=== PATIENT | male | born 1960 | race Caucasian/White ===

== ENCOUNTER → 2016-10-23 | Outpatient (CLI) | payer BC ==
[2016-10-23 08:56] LABS: ALT 62 U/L (21-72); AST 34 U/L (17-59); Alkaline Phosphatase 70 U/L (38-126); Anion Gap 12 mmol/L; Blood Urea Nitrogen 29 mg/dL (9-20); Carbon Dioxide 26 mmol/L (22-30); Chloride 103 mmol/L (98-107); Cholesterol 144 mg/dL (<200); Glucose 118 mg/dL (74-99); HDL Cholesterol 51 mg/dL (40-60); Non-African American GFR(MDRD) >60 (>60 ml/min/1.73 sqM); Potassium 4.6 mmol/L (3.5-5.1); Sodium 141 mmol/L (137-145); Total Bilirubin 0.6 mg/dL (0.2-1.3); Total Protein 7.8 g/dL (6.3-8.2); Triglycerides 47 mg/dL (<150)
== END | disposition home or self-care (01) ==
LOC: LABWHC1 08:05
PROVIDERS: ATTEND Internal Medicine Endocrinology, Diabetes & Metabolism
DX: E11.65 Type 2 diabetes mellitus with hyperglycemia (principal)
CPT/HCPCS: 36415; 80053; 80061; 82043

== ENCOUNTER → 2017-11-17 | Outpatient (CLI) | payer BC ==
[2017-11-17 08:35] LABS: ALT 72 U/L (21-72); AST 40 U/L (17-59); Albumin 4.7 g/dL (3.5-5.0); Alkaline Phosphatase 66 U/L (38-126); Anion Gap 16 mmol/L; Blood Urea Nitrogen 33 mg/dL (9-20); Calcium 10.4 mg/dL (8.4-10.2); Carbon Dioxide 24 mmol/L (22-30); Chloride 101 mmol/L (98-107); Cholesterol 161 mg/dL (<200); Glucose 152 mg/dL (74-99); HDL Cholesterol 44 mg/dL (40-60); LDL Cholesterol,Calculated 107 mg/dL (0-99); Potassium 4.4 mmol/L (3.5-5.1); Sodium 141 mmol/L (137-145); Total Bilirubin 0.3 mg/dL (0.2-1.3); Total Protein 7.7 g/dL (6.3-8.2); Triglycerides 52 mg/dL (<150)
[2017-11-17 16:46] LABS: Vitamin D 25 Hydroxy 28.7 ng/mL (30.0-100.0)
== END | disposition home or self-care (01) ==
LOC: LABWHC1 07:38
PROVIDERS: ATTEND Internal Medicine Endocrinology, Diabetes & Metabolism
DX: E11.65 Type 2 diabetes mellitus with hyperglycemia (principal); E55.9 Vitamin D deficiency, unspecified; E53.8 Deficiency of other specified B group vitamins
CPT/HCPCS: 36415; 80053; 80061; 82043; 82306; 82570; 82607; 83036

== ENCOUNTER 2018-01-29 13:27 | Emergency (ER) | payer BC ==
[2018-01-29 13:36] VITALS: TEMP 97.6
[2018-01-29] MEDS ORDERED: SODIUM CHLORIDE 0.9% 1,000 ML IV STA (13:58)
[2018-01-29] MEDS ORDERED: LABETALOL 5 MG/ML VIAL MDV IVP STA (13:59)
--- NOTE | 2018-01-29 14:08 | ED ---
General Adult HPI - General Chief complaint: Recheck/Abnormal Lab/Rx Stated complaint: abn EKG Time Seen by Provider: 01/29/18 13:51 Source: patient, family, RN notes reviewed Mode of arrival: ambulatory Limitations: no limitations - History of Present Illness Initial comments: Patient is a pleasant 57-year-old male presenting to the emergency Department with concerns for tachycardia. Patient has been noticing on his watch the past several weeks to couple months that his heart rate has been running high. Patient states that has alarmed at some points with a heart rate of 120. Patient frequently has noticed numbers near 108. Patient did go to his doctor today. Patient was told heart rate was 108-112. Patient also had elevated blood pressure of 180/112. Patient states he feels fine otherwise and has no complaints. Patient does drink 2 cups of coffee daily. Patient sometimes has one pop daily also. No chest pain or dyspnea. Patient denies increased stress. No diet pills or drug use. - Related Data Home Medications Medication Instructions Recorded Confirmed Cholecalciferol (Vitamin D3) 2,000 unit PO DAILY 01/29/18 01/29/18 [Vitamin D3] Cyanocobalamin (Vitamin B-12) 1,000 mcg PO DAILY 01/29/18 01/29/18 [Vitamin B-12] Liraglutide [Victoza 3-Wili] 1.2 mg SQ DAILY 01/29/18 01/29/18 Lovastatin [Mevacor] 40 mg PO HS 01/29/18 01/29/18 glipiZIDE [Glucotrol] 5 mg PO AC-BRKFST 01/29/18 01/29/18 metFORMIN HCL 1,000 mg PO BID 01/29/18 01/29/18 Previous Rx's Medication Instructions Recorded Atenolol [Tenormin] 12.5 mg PO BID #20 dose 01/29/18 Allergies Allergy/AdvReac Type Severity Reaction Status Date / Time No Known Allergies Allergy Verified 01/29/18 13:55 Review of Systems ROS Statement: Those systems with pertinent positive or pertinent negative responses have been documented in the HPI. ROS Other: All systems not noted in ROS Statement are negative. Constitutional: Denies: fever Eyes: Denies: eye pain ENT: Denies: ear pain Respiratory: Denies: cough, dyspnea Cardiovascular: Denies: chest pain Endocrine: Denies: fatigue Gastrointestinal: Denies: abdominal pain Genitourinary: Denies: dysuria Musculoskeletal: Denies: back pain Skin: Denies: rash Neurological: Denies: headache Past Medical History Past Medical History: Diabetes Mellitus, Hyperlipidemia, Hypertension History of Any Multi-Drug Resistant Organisms: None Reported Past Surgical History: Orthopedic Surgery Additional Past Surgical History / Comment(s): bone graft left wrist, bone spur left ankle Past Psychological History: No Psychological Hx Reported Smoking Status: Never smoker Past Alcohol Use History: Occasional Past Drug Use History: None Reported General Exam Limitations: no limitations General appearance: alert, in no apparent distress Head exam: Present: atraumatic Eye exam: Present: normal appearance, PERRL ENT exam: Present: normal oropharynx Neck exam: Present: normal inspection Respiratory exam: Present: normal lung sounds bilaterally Cardiovascular Exam: Present: tachycardia, normal heart sounds Expanded Peripheral pulses: 2+: Radial (R), Radial (L), Posterior Tibialis (R), Posterior Tibialis (L) GI/Abdominal exam: Present: soft. Absent: tenderness Extremities exam: Present: normal inspection. Absent: pedal edema, calf tenderness Neurological exam: Present: alert Psychiatric exam: Present: normal affect, normal mood Skin exam: Present: normal color Course Vital Signs 01/29/18 01/29/18 13:32 14:50 Temperature 97.6 F Pulse Rate 116 H 100 Respiratory 18 16 Rate Blood Pressure 184/102 159/100 O2 Sat by Pulse 96 98 Oximetry EKG Findings - EKG Comments: EKG Findings:: Sinus tachycardia 108. [place] 176. QRS 96. QT 354. QTC 474. Normal axis. Borderline inferior Q waves. No acute ST change. Medical Decision Making - Medical Decision Making Patient reevaluated and resting comfortably in bed. Patient remained symptom- free. Patient vital signs have dramatically improved with 20 of labetalol. Heart rate is 97. Blood pressure was 127/85. Repeat blood pressure is 143/89. Case was discussed in detail with patient's primary care physician, Dr. Silva who is comfortable with providing low dose beta jenelle and discharge. He states he will follow-up next week with patient. - Lab Data Result diagrams: 01/29/18 14:10 01/29/18 14:10 Lab Results 01/29/18 01/29/18 01/29/18 Range/Units 14:10 14:10 14:10 WBC 10.5 (3.8-10.6) k/uL RBC 4.98 (4.30-5.90) m/uL Hgb 14.7 (13.0-17.5) gm/dL Hct 43.0 (39.0-53.0) % MCV 86.2 (80.0-100.0) fL MCH 29.4 (25.0-35.0) pg MCHC 34.1 (31.0-37.0) g/dL RDW 12.9 (11.5-15.5) % Plt Count 313 (150-450) k/uL Neutrophils % 64 % Lymphocytes % 24 % Monocytes % 5 % Eosinophils % 4 % Basophils % 0 % Neutrophils # 6.7 (1.3-7.7) k/uL Lymphocytes # 2.5 (1.0-4.8) k/uL Monocytes # 0.6 (0-1.0) k/uL Eosinophils # 0.4 (0-0.7) k/uL Basophils # 0.0 (0-0.2) k/uL PT (9.0-12.0) sec INR (<1.2) APTT (22.0-30.0) sec D-Dimer (<0.60) mg/L FEU Sodium 136 L (137-145) mmol/L Potassium 3.9 (3.5-5.1) mmol/L Chloride 98 (98-107) mmol/L Carbon Dioxide 24 (22-30) mmol/L Anion Gap 14 mmol/L BUN 18 (9-20) mg/dL Creatinine 0.83 (0.66-1.25) mg/dL Est GFR (CKD-EPI)AfAm >90 (>60 ml/min/1.73 sqM) Est GFR (CKD-EPI)NonAf >90 (>60 ml/min/1.73 sqM) Glucose 105 H (74-99) mg/dL Calcium 10.4 H (8.4-10.2) mg/dL Magnesium 1.7 (1.6-2.3) mg/dL Total Bilirubin 0.4 (0.2-1.3) mg/dL AST 35 (17-59) U/L ALT 79 H (21-72) U/L Alkaline Phosphatase 65 (38-126) U/L Total Creatine Kinase 79 (55-170) U/L CK-MB (CK-2) 1.1 (0.0-2.4) ng/mL CK-MB (CK-2) Rel Index 1.4 Troponin I <0.012 (0.000-0.034) ng/mL Total Protein 8.0 (6.3-8.2) g/dL Albumin 5.2 H (3.5-5.0) g/dL TSH 0.913 (0.465-4.680) mIU/L Free T4 1.20 (0.78-2.19) ng/dL Urine Color Urine Appearance (Clear) Urine pH (5.0-8.0) Ur Specific [place] (1.001-1.035) Urine Protein (Negative) Urine Glucose (UA) (Negative) Urine Ketones (Negative) Urine Blood (Negative) Urine Nitrite (Negative) Urine Bilirubin (Negative) Urine Urobilinogen (<2.0) mg/dL Ur Leukocyte Esterase (Negative) Urine RBC (0-5) /hpf Urine WBC (0-5) /hpf Urine Mucus (None) /hpf Urine Opiates Screen (NotDetected) Ur Oxycodone Screen (NotDetected) Urine Methadone Screen (NotDetected) Ur Propoxyphene Screen (NotDetected) Ur Barbiturates Screen (NotDetected) U Tricyclic Antidepress (NotDetected) Ur Phencyclidine Scrn (NotDetected) Ur Amphetamines Screen (NotDetected) U Methamphetamines Scrn (NotDetected) U Benzodiazepines Scrn (NotDetected) Urine Cocaine Screen (NotDetected) U Marijuana (THC) Screen (NotDetected) 01/29/18 01/29/18 Range/Units 14:10 14:10 WBC (3.8-10.6) k/uL RBC (4.30-5.90) m/uL Hgb (13.0-17.5) gm/dL Hct (39.0-53.0) % MCV (80.0-100.0) fL MCH (25.0-35.0) pg MCHC (31.0-37.0) g/dL RDW (11.5-15.5) % Plt Count (150-450) k/uL Neutrophils % % Lymphocytes % % Monocytes % % Eosinophils % % Basophils % % Neutrophils # (1.3-7.7) k/uL Lymphocytes # (1.0-4.8) k/uL Monocytes # (0-1.0) k/uL Eosinophils # (0-0.7) k/uL Basophils # (0-0.2) k/uL PT 9.9 (9.0-12.0) sec INR 1.0 (<1.2) APTT 22.9 (22.0-30.0) sec D-Dimer <0.17 (<0.60) mg/L FEU Sodium (137-145) mmol/L Potassium (3.5-5.1) mmol/L Chloride (98-107) mmol/L Carbon Dioxide (22-30) mmol/L Anion Gap mmol/L BUN (9-20) mg/dL Creatinine (0.66-1.25) mg/dL Est GFR (CKD-EPI)AfAm (>60 ml/min/1.73 sqM) Est GFR (CKD-EPI)NonAf (>60 ml/min/1.73 sqM) Glucose (74-99) mg/dL Calcium (8.4-10.2) mg/dL Magnesium (1.6-2.3) mg/dL Total Bilirubin (0.2-1.3) mg/dL AST (17-59) U/L ALT (21-72) U/L Alkaline Phosphatase (38-126) U/L Total Creatine Kinase (55-170) U/L CK-MB (CK-2) (0.0-2.4) ng/mL CK-MB (CK-2) Rel Index Troponin I (0.000-0.034) ng/mL Total Protein (6.3-8.2) g/dL Albumin (3.5-5.0) g/dL TSH (0.465-4.680) mIU/L Free T4 (0.78-2.19) ng/dL Urine Color Light Yellow Urine Appearance Clear (Clear) Urine pH 5.5 (5.0-8.0) Ur Specific [place] 1.010 (1.001-1.035) Urine Protein 1+ H (Negative) Urine Glucose (UA) 3+ H (Negative) Urine Ketones Negative (Negative) Urine Blood Negative (Negative) Urine Nitrite Negative (Negative) Urine Bilirubin Negative (Negative) Urine Urobilinogen <2.0 (<2.0) mg/dL Ur Leukocyte Esterase Negative (Negative) Urine RBC <1 (0-5) /hpf Urine WBC <1 (0-5) /hpf Urine Mucus Rare H (None) /hpf Urine Opiates Screen Not Detected (NotDetected) Ur Oxycodone Screen Not Detected (NotDetected) Urine Methadone Screen Not Detected (NotDetected) Ur Propoxyphene Screen Not Detected (NotDetected) Ur Barbiturates Screen Not Detected (NotDetected) U Tricyclic Antidepress Not Detected (NotDetected) Ur Phencyclidine Scrn Not Detected (NotDetected) Ur Amphetamines Screen Not Detected (NotDetected) U Methamphetamines Scrn Not Detected (NotDetected) U Benzodiazepines Scrn Not Detected (NotDetected) Urine Cocaine Screen Not Detected (NotDetected) U Marijuana (THC) Screen Not Detected (NotDetected) Disposition Clinical Impression: Tachycardia, Hypertension Disposition: HOME SELF-CARE Condition: Stable Instructions: Hypertension (ED), Tachycardia (ED) Additional Instructions: Please follow-up with primary care physician in the beginning of the week. Please keep a diary of heart rate and blood pressure for her primary care physician to review. Return for increased heart rate, increased blood pressure , chest pain, weakness, worsening symptoms or any other concerns. Prescriptions: Atenolol [Tenormin] 12.5 mg PO BID #20 dose Is patient prescribed a controlled substance at d/c from ED?: No Referrals: Jake Silva DO [Primary Care Provider] - 1-2 days Time of Disposition: 15:52
[2018-01-29 14:44] LABS: Basophils % (A) 0 %; Eosinophils # (A) 0.4 k/uL (0-0.7); Eosinophils % (A) 4 %; HGB 14.7 gm/dL (13.0-17.5); Lymphocytes # (A) 2.5 k/uL (1.0-4.8); Lymphocytes % (A) 24 %; MCH 29.4 pg (25.0-35.0); MCHC 34.1 g/dL (31.0-37.0); MCV 86.2 fL (80.0-100.0); Mean Platelet Volume 7.8; Monocytes # (A) 0.6 k/uL (0-1.0); Monocytes % (A) 5 %; Neutrophils # (A) 6.7 k/uL (1.3-7.7); Neutrophils % (A) 64 %; Platelet Count 313 k/uL (150-450); RBC 4.98 m/uL (4.30-5.90); RDW 12.9 % (11.5-15.5); WBC 10.5 k/uL (3.8-10.6)
[2018-01-29 14:51] VITALS: PULSE 100; RESP 16
--- NOTE | 2018-01-29 14:52 | XR ---
EXAMINATION TYPE: XR chest 2V DATE OF EXAM: 01/29/2018 COMPARISON: NONE HISTORY: Tachycardia and hypertension today. TECHNIQUE: Frontal and lateral views of the chest are obtained. FINDINGS: There is some patchy bibasilar linear scarring and/or atelectasis. There is no focal air sp darlin opacity, pleural effusion, or pneumothorax seen. The cardiac silhouette size is within normal li mits. The osseous structures are intact. IMPRESSION: Limited bibasilar linear scarring and/or atelectasis.
[2018-01-29 14:58] LABS: Amphetamine Screen,Urine Not Detected (NotDetected); Appearance,Urine Clear (Clear); Barbiturate Screen,Urine Not Detected (NotDetected); Benzodiazepines Screen,Urine Not Detected (NotDetected); Bilirubin,Urine Negative (Negative); Blood,Urine Negative (Negative); Cocaine Screen,Urine Not Detected (NotDetected); Color,Urine Light Yellow; Glucose,Urine (UA) 3+ (Negative); Ketones,Urine Negative (Negative); Leukocyte Esterase,Urine Negative (Negative); Methadone Screen, Urine Not Detected (NotDetected); Mucus,Urine Rare /hpf; Nitrite,Urine Negative (Negative); Opiate Screen,Urine Not Detected (NotDetected); Oxycodone Screen, Urine Not Detected (NotDetected); PH, Urine 5.5 (5.0-8.0); Phencyclidine Screen,Urine Not Detected (NotDetected); Protein,Urine 1+ (Negative); RBC,Urine <1 /hpf (0-5); Tricyclic Antidepressant,Urine Not Detected (NotDetected); Urn Cannabinoid Scrn Not Detected (NotDetected); Urobilinogen,Urine <2.0 mg/dL (<2.0); WBC,Urine <1 /hpf (0-5)
[2018-01-29 15:05] LABS: ALT 79 U/L (21-72); AST 35 U/L (17-59); Albumin 5.2 g/dL (3.5-5.0); Alkaline Phosphatase 65 U/L (38-126); Anion Gap 14 mmol/L; Blood Urea Nitrogen 18 mg/dL (9-20); Calcium 10.4 mg/dL (8.4-10.2); Carbon Dioxide 24 mmol/L (22-30); Chloride 98 mmol/L (98-107); Creatine Kinase 79 U/L (55-170); D-Dimer <0.17 mg/L FEU (<0.60); Glucose 105 mg/dL (74-99); Magnesium 1.7 mg/dL (1.6-2.3); Partial Thromboplastin Time 22.9 sec (22.0-30.0); Potassium 3.9 mmol/L (3.5-5.1); Prothrombin Time 9.9 sec (9.0-12.0); Sodium 136 mmol/L (137-145); Total Bilirubin 0.4 mg/dL (0.2-1.3)
[2018-01-29 15:17] LABS: Creatine Kinase MB 1.1 ng/mL (0.0-2.4); Troponin I <0.012 ng/mL (0.000-0.034)
[2018-01-29 16:21] VITALS: BP 123/78
== END 2018-01-29 16:20 | disposition home or self-care (01) ==
LOC: EC 13:27
DX: I10 Essential (primary) hypertension (principal); R00.0 Tachycardia, unspecified; E78.5 Hyperlipidemia, unspecified; E11.9 Type 2 diabetes mellitus without complications; Z79.84 Long term (current) use of oral hypoglycemic drugs; Z79.899 Other long term (current) drug therapy
CPT/HCPCS: 36415; 71046; 80053; 80306; 81001; 82550; 82553; 83735; 84439; 84443; 84481; 84484; 85025; 85379; 85610; 85730; 93005; 96361; 96374; 99285

== ENCOUNTER → 2018-02-05 | Outpatient (CLI) | payer BC ==
--- NOTE | 2018-02-16 21:09 | HM ---
HOLTER MONITOR REPORT DATE OF SERVICE: February 05, 2018 REFERRING PHYSICIAN: Dr. Silva. CLINICAL INFORMATION: The patient was monitored for 24 hours. The baseline rhythm appeared to be a sinus mechanism with a minimum heart rate of 73 beats per minute, max heart rate 123 beats per minute and average heart rate of 95 beats per minute. Ventricular ectopic events were presented in less than 1% of the total beats counts. Supraventricular ectopic events were present in less than 1% of the total beats count. No evidence of sinus pause or sinus arrest. No evidence of any advanced AV block. No evidence of any tachy or bradyarrhythmia. CONCLUSION: 1. Sinus rhythm as a baseline mechanism. 2. Rare ventricular ectopy events. 3. Rare superficial ectopic events. 4. There is no evidence of any advanced sinus pause or sinus arrest. 5. There is no evidence of any advanced AV block. 6. There is no evidence of any tachy or bradyarrhythmia. 7. The patient reported symptoms of chest pressure and symptoms were associated with normal sinus mechanism. MMODL / IJN: [id number] /
== END | disposition home or self-care (01) ==
LOC: RADECHMAIN 11:54
PROVIDERS: ATTEND Family Medicine
DX: I49.3 Ventricular premature depolarization (principal)
CPT/HCPCS: 93225; 93226

== ENCOUNTER → 2018-03-08 | Outpatient (CLI) | payer BC ==
[2018-03-08 08:44] LABS: ALT 101 U/L (21-72); AST 33 U/L (17-59); Albumin 4.8 g/dL (3.5-5.0); Alkaline Phosphatase 62 U/L (38-126); Anion Gap 13 mmol/L; Blood Urea Nitrogen 27 mg/dL (9-20); Calcium 10.4 mg/dL (8.4-10.2); Carbon Dioxide 26 mmol/L (22-30); Chloride 100 mmol/L (98-107); Cholesterol 152 mg/dL (<200); Glucose 167 mg/dL (74-99); HDL Cholesterol 42 mg/dL (40-60); LDL Cholesterol,Calculated 97 mg/dL (0-99); Potassium 4.4 mmol/L (3.5-5.1); Sodium 139 mmol/L (137-145); Total Bilirubin 0.4 mg/dL (0.2-1.3); Total Protein 7.8 g/dL (6.3-8.2); Triglycerides 64 mg/dL (<150)
[2018-03-08 09:00] LABS: T4, Free (Free Thyroxine) 1.17 ng/dL (0.78-2.19)
[2018-03-08 09:13] LABS: Prostate Specific Antigen 1.12 ng/mL (0.00-4.00)
[2018-03-08 12:45] LABS: Hemoglobin A1C 7.1 % (4.0-6.0)
== END | disposition home or self-care (01) ==
LOC: LABWHC1 07:29
PROVIDERS: ATTEND Internal Medicine Endocrinology, Diabetes & Metabolism
DX: N40.0 Benign prostatic hyperplasia without lower urinary tract symptoms (principal); E11.65 Type 2 diabetes mellitus with hyperglycemia; E83.52 Hypercalcemia
CPT/HCPCS: 36415; 80053; 80061; 82607; 83036; 83970; 84153; 84439; 84443

== ENCOUNTER → 2018-08-21 | Outpatient (CLI) | payer BC ==
[2018-08-21 09:52] LABS: HCT 43.4 % (39.0-53.0); HGB 14.1 gm/dL (13.0-17.5); MCH 29.5 pg (25.0-35.0); MCHC 32.5 g/dL (31.0-37.0); MCV 90.5 fL (80.0-100.0); Mean Platelet Volume 7.7; Platelet Count 313 k/uL (150-450); RBC 4.79 m/uL (4.30-5.90); RDW 12.6 % (11.5-15.5)
[2018-08-21 16:45] LABS: Vitamin D 25 Hydroxy 54.5 ng/mL (30.0-100.0)
[2018-08-21 16:52] LABS: Albumin 5.2 g/dL (3.80-4.90); Albumin/Globulin Ratio 2.17 (1.60-3.17); Anion Gap 9.5 mmol/L (4.00-12.00); Bilirubin, Conjugated 0.2 mg/dL (0.20-0.40); Bilirubin,Unconjugated 0.2 mg/dL; Calcium 10.7 mg/dL (8.7-10.3); Carbon Dioxide 27.5 mmol/L (21.6-31.8); Globulin 2.4 g/dL (1.6-3.3); LDL Cholesterol,Calculated 60.6 mg/dL (0.0-131.0); Potassium 5.2 mmol/L (3.5-5.5); Total Bilirubin 0.4 mg/dL (0.3-1.2); Total Protein 7.6 g/dL (6.2-8.2); VLDL Calculation 11.4 mg/dL (5.00-40.00)
[2018-08-21 17:15] LABS: Hemoglobin A1C 7.5 % (4.0-6.0)
== END | disposition home or self-care (01) ==
LOC: LABWHC1 08:33
PROVIDERS: ATTEND Internal Medicine Endocrinology, Diabetes & Metabolism
DX: E11.65 Type 2 diabetes mellitus with hyperglycemia (principal); E55.9 Vitamin D deficiency, unspecified; I10 Essential (primary) hypertension; E78.5 Hyperlipidemia, unspecified; R94.5 Abnormal results of liver function studies
CPT/HCPCS: 36415; 80053; 80061; 80074; 80076; 82043; 82306; 82570; 82977; 83036; 84443; 85027

== ENCOUNTER → 2018-10-05 | Outpatient (CLI) | payer BC ==
[2018-10-05 16:18] LABS: ALT 60 U/L (10-49); AST 27 U/L (14-35); Alkaline Phosphatase 58 U/L (41-126); Bilirubin, Conjugated <0.20 mg/dL (0.20-0.40); GGT 116 U/L (0-73); Total Bilirubin 0.3 mg/dL (0.3-1.2); Total Protein 6.6 g/dL (6.2-8.2)
== END | disposition home or self-care (01) ==
LOC: LABWHC1 07:01
PROVIDERS: ATTEND Family Medicine
DX: E83.52 Hypercalcemia (principal); R74.8 Abnormal levels of other serum enzymes
CPT/HCPCS: 36415; 80076; 82310; 82977; 83970

== ENCOUNTER → 2018-10-27 | Outpatient (CLI) | payer BC ==
--- NOTE | 2018-10-27 16:43 | US ---
EXAMINATION TYPE: US liver DATE OF EXAM: 10/27/2018 COMPARISON: CT CLINICAL HISTORY: K76.0 Fatty liver , not elsewhere classified. Pt states recent abnormal LFT's EXAM MEASUREMENTS: Liver Length: 14.9 cm Gallbladder Wall: 0.2 cm CBD: 0.5 cm Right Kidney: 10.4 x 5.6 x 5.0 cm Pt very gassy, difficult scan Pancreas: Obscured by bowel gas Liver: Mostly obscured by overlying bowel gas, visualized mostly intercostally, probable fatty spari ng near GB Gallbladder: Appeared distended with possible sludge Evidence for sonographic Ruiz's sign: No CBD: wnl Right Kidney: wnl, lower pole gassed out IMPRESSION: 1. Exam limited with abundant bowel gas. 2. Portions of the right upper quadrant ultrasound visualized appear within normal limits.
== END ==
LOC: RADUSWWP 09:25
PROVIDERS: ATTEND Family Medicine
DX: K76.0 Fatty (change of) liver, not elsewhere classified (principal)
CPT/HCPCS: 76705

== ENCOUNTER → 2023-03-26 | Outpatient (CLI) | payer BC ==
--- NOTE | 2023-03-26 10:06 | MR ---
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 IV Contrast: cc . None. FINDINGS: Alignment: The lumbar vertebral bodies have preserved heights with grade 1 anterolisthesis of L5 on S 1. There is spondylolysis bilaterally. Cord: The conus medullaris and the distal spinal cord appear unremarkable with regards to their signa l intensity and morphology. Bones/Discs: Minimal disc degeneration changes worse at L5-S1 with disc space narrowing and osteophyt es. Intervertebral disc signal is maintained. T12-L1: No evidence of significant spinal canal stenosis or neural foraminal stenosis. L1-L2: No evidence of significant spinal canal stenosis or neural foraminal stenosis. L2-L3: No evidence of significant spinal canal stenosis or neural foraminal stenosis. L3-L4: No evidence of significant spinal canal stenosis or neural foraminal stenosis. L4-L5: There is a left central and foraminal disc extrusion with inferior migration of disc material series 411 image 7. There is at least 11 mm inferior migration which abuts the exiting left nerve at this level. Facet joint arthropathy at least moderate to severe right neural foraminal stenosis. Ther e is a disc bulge at this level as well with possible central disc protrusion without significant spi nal canal or neural foraminal stenosis. L5-S1: The disc is rounded posterior morphology without significant spinal canal stenosis. Facet join t arthropathy with mild neural foraminal stenosis. No significant spinal canal or neural foraminal stenosis in the remainder of the visualized levels. Other findings: None. IMPRESSION: 1. L4-L5 left central/foraminal disc extrusion which abuts the exiting left L5-S1 nerve. Additional bulging and central disc protrusion at this level is present. No significant spinal canal stenosis. 2. Grade 1 anterolisthesis of L5 on S1 with spondylolysis bilaterally.
== END | disposition home or self-care (01) ==
LOC: RADMRIMAIN 07:54
PROVIDERS: ATTEND Physical Medicine & Rehabilitation
DX: M51.17 Intervertebral disc disorders with radiculopathy, lumbosacral region (principal); M47.27 Other spondylosis with radiculopathy, lumbosacral region; M48.062 Spinal stenosis, lumbar region with neurogenic claudication; M43.17 Spondylolisthesis, lumbosacral region; M99.73 Connective tissue and disc stenosis of intervertebral foramina of lumbar region
CPT/HCPCS: 72148

== ENCOUNTER 2023-09-14 10:57 | Inpatient (IN) | payer OTHER, BC ==
--- NOTE | 2023-09-14 11:13 | ED ---
General Adult HPI - General Stated complaint: Abd Labs Time Seen by Provider: 09/14/23 11:01 Source: patient, RN notes reviewed Mode of arrival: ambulatory Limitations: no limitations - History of Present Illness Initial comments: 63-year-old male presents emergency department with chief complaint of abdominal pain. Patient was sent over from urgent care to rule out obstruction. Patient states he had x-rays that show concerns for obstruction he states he had vomiting for last few days he states he initially had bowel movements he states he has not had any stool output. Patient denies any fevers or chills no prior abdominal surgeries. - Related Data Home Medications Medication Instructions Recorded Confirmed Cyanocobalamin (Vitamin B-12) 1,000 mcg PO DAILY 01/29/18 09/14/23 [Vitamin B-12] Aspirin EC [Ecotrin Low Dose] 81 mg PO DAILY 09/14/23 09/14/23 Glucagon [Gvoke Pfs 1-Pack Syringe] 1 mg SQ ONCE PRN 09/14/23 09/14/23 Insulin Aspart [NovoLOG Flexpen] See Protocol SQ AC-TID 09/14/23 09/14/23 Insulin Glargine,Hum.rec.anlog 34 units SQ DAILY 09/14/23 09/14/23 [Toujeo Max Solostar] Losartan [Cozaar] 50 mg PO HS 09/14/23 09/14/23 Metoprolol Succinate (ER) [Toprol 50 mg PO DAILY 09/14/23 09/14/23 Xl] Rosuvastatin [Crestor] 20 mg PO HS 09/14/23 09/14/23 Semaglutide [Rybelsus] 3 mg PO AC-BRKFST 09/14/23 09/14/23 Testosterone Cypionate 200 mg IM Q14D 09/14/23 09/14/23 [Depo-Testosterone] Allergies Allergy/AdvReac Type Severity Reaction Status Date / Time No Known Allergies Allergy Verified 09/14/23 11:09 Review of Systems ROS Statement: Those systems with pertinent positive or pertinent negative responses have been documented in the HPI. ROS Other: All systems not noted in ROS Statement are negative. Past Medical History Past Medical History: Diabetes Mellitus, Hyperlipidemia, Hypertension History of Any Multi-Drug Resistant Organisms: None Reported Past Surgical History: Orthopedic Surgery Additional Past Surgical History / Comment(s): bone graft left wrist, bone spur left ankle Past Psychological History: No Psychological Hx Reported Smoking Status: Never smoker Past Alcohol Use History: Occasional Past Drug Use History: None Reported General Exam - General Exam Comments Initial Comments: Visual Physical Exam Vital signs reviewed General: Well-appearing, nontoxic, no acute distress. Head: Normocephalic, atraumatic Eyes: PERRLA, EOMI ENT: Airway patent Chest: Nonlabored breathing Skin: No visual rash, normal skin tone Neuro: Alert and oriented 3 Musculoskeletal: No gross abnormalities Limitations: no limitations General appearance: alert, in no apparent distress Head exam: Present: atraumatic, normocephalic, normal inspection Eye exam: Present: normal appearance, PERRL, EOMI. Absent: scleral icterus, conjunctival injection, periorbital swelling ENT exam: Present: normal exam, normal oropharynx, mucous membranes moist Neck exam: Present: normal inspection, full ROM. Absent: tenderness, meningismus, lymphadenopathy Respiratory exam: Present: normal lung sounds bilaterally. Absent: respiratory distress, wheezes, rales, rhonchi, stridor Cardiovascular Exam: Present: normal rhythm, tachycardia, normal heart sounds. Absent: systolic murmur, diastolic murmur, rubs, gallop, clicks GI/Abdominal exam: Present: soft, tenderness, normal bowel sounds. Absent: distended, guarding, rebound, rigid Neurological exam: Present: alert, oriented X3 Skin exam: Present: warm, dry, intact, normal color. Absent: rash Course Vital Signs 09/14/23 09/14/23 09/14/23 11:07 16:19 17:16 Temperature 98.2 F Pulse Rate 125 H 112 H 114 H Respiratory 24 18 16 Rate Blood Pressure 126/80 199/116 180/108 Blood Pressure [Left Arm] Blood Pressure [Right Arm] O2 Sat by Pulse 98 97 96 Oximetry 09/14/23 09/14/23 09/14/23 17:29 18:05 19:00 Temperature Pulse Rate 116 H 117 H Respiratory 16 18 Rate Blood Pressure 178/112 162/108 Blood Pressure 173/103 [Left Arm] Blood Pressure 182/114 [Right Arm] O2 Sat by Pulse 97 99 Oximetry 09/14/23 19:33 Temperature Pulse Rate 109 H Respiratory 19 Rate Blood Pressure 162/108 Blood Pressure [Left Arm] Blood Pressure [Right Arm] O2 Sat by Pulse 95 Oximetry EKG Findings - EKG Comments: EKG Findings:: EKG performed at 14: 36 sinus tachycardia with a rate of 125 MA 157 QRS 89 QT/QTc 319/393 - EKG Results: EKG: interpreted by [facility]SE[facility] Medical Decision Making - Medical Decision Making I completed the quick note portion of this chart signed Josef Martins PA-C Was pt. sent in by a medical professional or institution (, [facility], SHOWCASE TRIMMER, urgent care, hospital, or snf...) When possible be specific @ -Urgent care Did you speak to anyone other than the patient for history (EMS, parent, family, police, friend...)? What history was obtained from this source @ -No Did you review nursing and triage notes (agree or disagree)? Why? @ -I reviewed and agree with nursing and triage notes Were old charts reviewed (outside hosp., previous admission, EMS record, old EKG, old radiological studies, urgent care reports/EKG's, snf records)? Report findings @ -No old charts were reviewed Differential Diagnosis (chest pain, altered mental status, abdominal pain women, abdominal pain men, vaginal bleeding, weakness, fever, dyspnea, syncope, h eadache, dizziness, GI bleed, back pain, seizure, CVA, palpatations, mental health, musculoskeletal)? @ -Differential Abdominal Pain Men: Appendicitis, cholecystitis, diverticulosis, ischemic bowel, pancreatitis, hepatitis, UTI, gastroenteritis, AAA, incarcerated hernia, bowel obstruction, constipation, inflammatory bowel, hepatitis, peptic ulcer disease, splenic infarction, perforated viscus, testicular torsion, this is not meant to be an all-inclusive list EKG interpreted by me (3pts min.). @ -As above X-rays interpreted by me (1pt min.). @ -None done CT interpreted by me (1pt min.). @ -CT abdomen pelvis showing no evidence of obstruction, no obvious signs of infection] U/S interpreted by me (1pt. min.). @ -None done What testing was considered but not performed or refused? (CT, X-rays, U/S, labs)? Why? @ -None What meds were considered but not given or refused? Why? @ -None Did you discuss the management of the patient with other professionals (professionals i.e. , KASANDRA, SHOWCASE TRIMMER, lab, RT, psych nurse, social director, engineering document control clerk, teacher, highway patrol officer, mattress spring encaser)? Give summary @ -Dr. Garcia for admission with consult to nephrology Was smoking cessation discussed for >3mins.? @ -No Was critical care preformed (if so, how long)? @ -No Were there social determinants of health that impacted care today? How? (Homelessness, low income, unemployed, alcoholism, drug addiction, transpo rtation, low edu. Level, literacy, decrease access to med. care, [place] [facility], rehab)? @ -No Was there de-escalation of care discussed even if they declined (Discuss DNR or withdrawal of care, Hospice)? DNR status @ -No What co-morbidities impacted this encounter? (DM, HTN, Smoking, COPD, CAD, Cancer, CVA, ARF, Chemo, Hep., AIDS, mental health diagnosis, sleep apnea, morbid obesity)? @ -[Diabetes Was patient admitted / discharged? Hospital course, mention meds given and route, prescriptions, significant lab abnormalities, going to OR and other pertinent info. @ -Admitted patient found to have acute renal failure patient's creatinine is over 3. Patient does have moderate leukocytosis though no obvious signs of infection patient is acutely dehydrated is given fluid bolus with maintenance fluids will have consult to nephrology repeat laboratory studies. Undiagnosed new problem with uncertain prognosis? @ -No Drug Therapy requiring intensive monitoring for toxicity (Heparin, Nitro, Insulin, Cardizem)? @ -No Were any procedures done? @ -No Diagnosis/symptom? @ -Acute renal failure, dehydration, nausea vomiting, abdominal pain Acute, or Chronic, or Acute on Chronic? @ -Acute Uncomplicated (without systemic symptoms) or Complicated (systemic symptoms)? @ -Complicated Side effects of treatment? @ -No Exacerbation, Progression, or Severe Exacerbation? @ -No Poses a threat to life or bodily function? How? (Chest pain, [place], [place], pneumonia, PE, COPD, DKA, ARF, appy, cholecystitis, CVA, Diverticulitis, Homicidal, Suicidal, threat to staff... and all critical care pts) @ -Yes renal failure - Lab Data Result diagrams: 09/14/23 12:46 09/14/23 12:46 Lab Results 09/14/23 09/14/23 09/14/23 Range/Units 12:46 12:46 12:46 WBC 23.2 H (3.8-10.6) k/uL RBC 5.61 (4.30-5.90) m/uL Hgb 17.9 H (13.0-17.5) gm/dL Hct 52.3 (39.0-53.0) % MCV 93.3 (80.0-100.0) fL MCH 32.0 (25.0-35.0) pg MCHC 34.3 (31.0-37.0) g/dL RDW 12.6 (11.5-15.5) % Plt Count 349 (150-450) k/uL MPV 8.6 Neutrophils % 87 % Lymphocytes % 5 % Monocytes % 6 % Eosinophils % 0 % Basophils % 0 % Neutrophils # 20.2 H (1.3-7.7) k/uL Lymphocytes # 1.2 (1.0-4.8) k/uL Monocytes # 1.3 H (0-1.0) k/uL Eosinophils # 0.1 (0-0.7) k/uL Basophils # 0.0 (0-0.2) k/uL Sodium 141 (137-145) mmol/L Potassium 4.5 (3.5-5.1) mmol/L Chloride 99 (98-107) mmol/L Carbon Dioxide 22 (22-30) mmol/L Anion Gap 20 mmol/L BUN 63 H (9-20) mg/dL Creatinine 3.14 H (0.66-1.25) mg/dL Est GFR (CKD-EPI)AfAm 24 (>60 ml/min/1.73 sqM) Est GFR (CKD-EPI)NonAf 20 (>60 ml/min/1.73 sqM) Glucose 177 H (74-99) mg/dL Plasma Lactic Acid Elver 1.6 (0.7-2.0) mmol/L Calcium 11.4 H (8.4-10.2) mg/dL Total Bilirubin 1.2 (0.2-1.3) mg/dL AST 38 (17-59) U/L ALT 48 (4-49) U/L Alkaline Phosphatase 102 (38-126) U/L Total Protein 8.7 H (6.3-8.2) g/dL Albumin 5.3 H (3.5-5.0) g/dL Lipase 153 (23-300) U/L Urine Color Urine Appearance (Clear) Urine pH (5.0-8.0) Ur Specific [place] (1.001-1.035) Urine Protein (Negative) Urine Glucose (UA) (Negative) Urine Ketones (Negative) Urine Blood (Negative) Urine Nitrite (Negative) Urine Bilirubin (Negative) Urine Urobilinogen (<2.0) mg/dL Ur Leukocyte Esterase (Negative) Urine RBC (0-5) /hpf Urine WBC (0-5) /hpf Urine Mucus (None) /hpf 09/14/23 Range/Units 13:06 WBC (3.8-10.6) k/uL RBC (4.30-5.90) m/uL Hgb (13.0-17.5) gm/dL Hct (39.0-53.0) % MCV (80.0-100.0) fL MCH (25.0-35.0) pg MCHC (31.0-37.0) g/dL RDW (11.5-15.5) % Plt Count (150-450) k/uL MPV Neutrophils % % Lymphocytes % % Monocytes % % Eosinophils % % Basophils % % Neutrophils # (1.3-7.7) k/uL Lymphocytes # (1.0-4.8) k/uL Monocytes # (0-1.0) k/uL Eosinophils # (0-0.7) k/uL Basophils # (0-0.2) k/uL Sodium (137-145) mmol/L Potassium (3.5-5.1) mmol/L Chloride (98-107) mmol/L Carbon Dioxide (22-30) mmol/L Anion Gap mmol/L BUN (9-20) mg/dL Creatinine (0.66-1.25) mg/dL Est GFR (CKD-EPI)AfAm (>60 ml/min/1.73 sqM) Est GFR (CKD-EPI)NonAf (>60 ml/min/1.73 sqM) Glucose (74-99) mg/dL Plasma Lactic Acid Elver (0.7-2.0) mmol/L Calcium (8.4-10.2) mg/dL Total Bilirubin (0.2-1.3) mg/dL AST (17-59) U/L ALT (4-49) U/L Alkaline Phosphatase (38-126) U/L Total Protein (6.3-8.2) g/dL Albumin (3.5-5.0) g/dL Lipase (23-300) U/L Urine Color Colorless Urine Appearance Clear (Clear) Urine pH 5.5 (5.0-8.0) Ur Specific [place] 1.012 (1.001-1.035) Urine Protein 1+ H (Negative) Urine Glucose (UA) 2+ H (Negative) Urine Ketones 1+ H (Negative) Urine Blood Moderate H (Negative) Urine Nitrite Negative (Negative) Urine Bilirubin Negative (Negative) Urine Urobilinogen <2.0 (<2.0) mg/dL Ur Leukocyte Esterase Negative (Negative) Urine RBC 1 (0-5) /hpf Urine WBC 3 (0-5) /hpf Urine Mucus Rare H (None) /hpf Disposition Clinical Impression: Nausea & vomiting, Abdominal pain, Acute renal failure Disposition: ADMITTED IP TO THIS [facility] Condition: Fair Time of Disposition: 14:09
[2023-09-14 12:56] LABS: Basophils % (A) 0 %; Eosinophils # (A) 0.1 k/uL (0-0.7); Eosinophils % (A) 0 %; HCT 52.3 % (39.0-53.0); HGB 17.9 gm/dL (13.0-17.5); Lymphocytes # (A) 1.2 k/uL (1.0-4.8); Lymphocytes % (A) 5 %; MCHC 34.3 g/dL (31.0-37.0); MCV 93.3 fL (80.0-100.0); Mean Platelet Volume 8.6; Monocytes # (A) 1.3 k/uL (0-1.0); Monocytes % (A) 6 %; Neutrophils # (A) 20.2 k/uL (1.3-7.7); Neutrophils % (A) 87 %; Platelet Count 349 k/uL (150-450); RBC 5.61 m/uL (4.30-5.90); RDW 12.6 % (11.5-15.5); WBC 23.2 k/uL (3.8-10.6)
[2023-09-14 13:11] LABS: ALT 48 U/L (4-49); AST 38 U/L (17-59); African American GFR (CKD) 24 (>60 ml/min/1.73 sqM); Albumin 5.3 g/dL (3.5-5.0); Alkaline Phosphatase 102 U/L (38-126); Anion Gap 20 mmol/L; Blood Urea Nitrogen 63 mg/dL (9-20); Calcium 11.4 mg/dL (8.4-10.2); Carbon Dioxide 22 mmol/L (22-30); Chloride 99 mmol/L (98-107); Glucose 177 mg/dL (74-99); Lipase 153 U/L (23-300); Non-African American GFR(CKD) 20 (>60 ml/min/1.73 sqM); Potassium 4.5 mmol/L (3.5-5.1); Sodium 141 mmol/L (137-145); Total Bilirubin 1.2 mg/dL (0.2-1.3); Total Protein 8.7 g/dL (6.3-8.2)
[2023-09-14 13:38] LABS: Appearance,Urine Clear (Clear); Bilirubin,Urine Negative (Negative); Blood,Urine Moderate (Negative); Color,Urine Colorless; Glucose,Urine (UA) 2+ (Negative); Ketones,Urine 1+ (Negative); Leukocyte Esterase,Urine Negative (Negative); Mucus,Urine Rare /hpf; Nitrite,Urine Negative (Negative); PH, Urine 5.5 (5.0-8.0); Protein,Urine 1+ (Negative); RBC,Urine 1 /hpf (0-5); Specific Gravity,Urine 1.012 (1.001-1.035); Urobilinogen,Urine <2.0 mg/dL (<2.0); WBC,Urine 3 /hpf (0-5)
--- NOTE | 2023-09-14 14:06 | CT ---
EXAMINATION: CT ABDOMEN AND PELVIS WITHOUT IV CONTRAST DATE OF EXAMINATION: 09/14/2023. COMPARISON: None available. INDICATION: Abdominal pain. Possible obstruction. PROCEDURE: Axial CT of the abdomen and pelvis was performed with sagittal and coronal reformatted i mages without contrast enhancement. The exam is limited because some types of pathology may not be ad equately demonstrated due to lack of contrast enhancement. CT dose lowering techniques were used, to include: automated exposure control, adjustment for patient size, and/or use of iterative reconstruct ion. FINDINGS: LOWER CHEST : The visualized lung bases are clear. There are no pleural or pericardial effusions. M oderate patchy coronary artery calcifications are partially included on the evaluation. ABDOMEN: Liver and Biliary system: Normal. Adrenal glands: Normal. Kidneys and ureters: There are no renal stones or hydronephrosis. No ureteral stones are present.. Spleen: Normal. Pancreas: Normal. Gallbladder: Normal. Lymph nodes, Peritoneum and mesentery: There is no mesenteric or retroperitoneal lymphadenopathy. Gastrointestinal tract: There are no dilated loops of bowel or free intraperitoneal air. . The appe ndix is normal. Aorta/IVC: There is moderate vascular calcification throughout the abdominal aorta without evidence of aneurysmal dilation. There is a small sliding hiatal hernia.. IVC normal. Abdominal wall: Normal. PELVIS: Fluid: There is no free fluid in the pelvis. Lymph Nodes: There is no pelvic or inguinal lymphadenopathy.. Urinary bladder: Normal. BONES: There are bilateral pars and articular defects at L5 with a grade 1 anterolisthesis. There ar e no acute osseous abnormalities. ADDITIONAL SIGNIFICANT FINDINGS: None. IMPRESSION: 1. No renal stones or hydronephrosis.. 2. No bowel obstruction or appendicitis. 3. Additional findings as above. 4. No acute findings otherwise seen.
[2023-09-14] MEDS ORDERED: NALOXONE 0.4 MG/ML 1 ML VIAL IV PRN (14:11)
[2023-09-14] MEDS ORDERED: ACETAMINOPHEN TAB 325 MG TAB PO PRN (14:11)
[2023-09-14] MEDS: SODIUM CHLORIDE 0.9% 1,000 ML IV SCH (15:32)
[2023-09-14] MEDS: SODIUM CHLORIDE 0.9% 1,000 ML IV ONE (15:32)
[2023-09-14] MEDS ORDERED: ALPRAZolam 0.25 MG TAB PO PRN (15:55)
[2023-09-14] MEDS ORDERED: LACTULOSE 20 GM/30 ML CUP PO PRN (15:55)
[2023-09-14] MEDS ORDERED: MELATONIN 3 MG TABLET PO PRN (15:55)
--- NOTE | 2023-09-14 16:02 | P.HPIM ---
History of Present Illness H&P Date: 09/14/23 Chief Complaint: Vomiting This is a pleasant 63-year-old patient, follows with Dr. Silva. Chronic stable medical conditions include diabetes type 2, essential hypertension, L4-L5 disc disease, hyperlipidemia, inappropriate tachycardia. 2 days ago on Thursday morning after having his morning coffee patient started vomiting. Vomiting persisted pretty much all of Thursday and Thursday. Was able to keep anything down. Landis extremely weak and tired and decided to go to his family doctor this morning was sent to the ER. Has some associated heartburn. Denied any abdominal pain. No change in bowel pattern. Slight chills. But no fever. Patient is accompanied by his in the ER. Creatinine has bumped up. Review of systems: GEN.: Tired EYES: None HEENT: None NECK: None RESPIRATORY: None CARDIOVASCULAR: None GASTROINTESTINAL: As above GENITOURINARY: None MUSCULOSKELETAL: None LYMPHATICS: None HEMATOLOGICAL: None PSYCHIATRY: None NEUROLOGICAL: None Social history: No smoking alcohol. . 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 Physical examination: VITAL SIGNS: 98.2, 125, 24, 126 x 80, 98% room air GENERAL: BMI 83.4, reclining bed awake comfortable. EYES: Pupils equal. Conjunctiva ruperto l. HEENT: External appearance of nose and ears normal, oral cavity grossly normal. NECK: JVD not raised; masses not palpable. HEART: First and second heart sounds are normal; no edema. LUNGS: Respiratory rate normal; clear to auscultation. ABDOMEN: Soft, nontender, liver spleen not palpable, no masses palpable. PSYCH: Alert and oriented x3; mood and affect ruperto l. MUSCULOSKELETAL:No Clubbing/cyanosis;muscles-grossly intact NEUROLOGICAL: Cranial nerves grossly intact; no facial asymmetry, power and sensation grossly intact. LYMPHATICS: No lymph nodes palpable in the axilla and neck INVESTIGATIONS, reviewed in the clinical context: September 14, 2023: White count 23.2 hemoglobin 7.9 platelets 349 sodium 141 potassium 4.5 BUN 63 creatinine 3.14 EKG tracing personally reviewed by me-sinus tachycardia with occasional PVCs. Some other nonspecific findings CT scan abdomen pelvis: Chronic changes Assessment and plan: -Likely acute viral/bacterial gastritis. Lead resulting in persistent vomiting. For 2 days. Patient not able to keep anything down. Pepcid. Liquid diet -Acute kidney injury likely combination of ATN and prerenal. Hold off Glucophage, Half saline at 150 cc an hour. Follow renal function -Diabetes mellitus type 2 Follow Accu-Cheks with sliding scale insulin -Inappropriate tachycardia Atenolol Care was discussed with the patient at the bedside. Questions answered. Follow labs. Past Medical History Past Medical History: Diabetes Mellitus, Hyperlipidemia, Hypertension History of Any Multi-Drug Resistant Organisms: None Reported Past Surgical History: Orthopedic Surgery Additional Past Surgical History / Comment(s): bone graft left wrist, bone spur left ankle Past Psychological History: No Psychological Hx Reported Smoking Status: Never smoker Past Alcohol Use History: Occasional Past Drug Use History: None Reported Medications and Allergies Home Medications Medication Instructions Recorded Confirmed Type Cholecalciferol (Vitamin D3) 2,000 unit PO DAILY 01/29/18 01/29/18 History [Vitamin D3] Cyanocobalamin (Vitamin B-12) 1,000 mcg PO DAILY 01/29/18 01/29/18 History [Vitamin B-12] Liraglutide [Victoza 3-Wili] 1.2 mg SQ DAILY 01/29/18 01/29/18 History Lovastatin [Mevacor] 40 mg PO HS 01/29/18 01/29/18 History atenoloL [Tenormin] 12.5 mg PO BID #20 dose 01/29/18 Rx glipiZIDE [Glucotrol] 5 mg PO AC-BRKFST 01/29/18 01/29/18 History metFORMIN HCL [Glucophage] 1,000 mg PO BID 01/29/18 01/29/18 History Allergies Allergy/AdvReac Type Severity Reaction Status Date / Time No Known Allergies Allergy Verified 09/14/23 11:09 Physical Exam Vitals: Vital Signs Temp Pulse Resp BP Pulse Ox 09/14/23 11:07 98.2 F 125 H 24 126/80 98 Intake and Output 09/14/23 09/14/23 09/14/23 06:59 14:59 22:59 Other: Weight 83.461 kg Results CBC & Chem 7: 09/14/23 12:46 09/14/23 12:46 Labs: Abnormal Lab Results - Last 24 Hours (Table) 09/14/23 09/14/23 09/14/23 Range/Units 12:46 12:46 13:06 WBC 23.2 H (3.8-10.6) k/uL Hgb 17.9 H (13.0-17.5) gm/dL Neutrophils # 20.2 H (1.3-7.7) k/uL Monocytes # 1.3 H (0-1.0) k/uL BUN 63 H (9-20) mg/dL Creatinine 3.14 H (0.66-1.25) mg/dL Glucose 177 H (74-99) mg/dL Calcium 11.4 H (8.4-10.2) mg/dL Total Protein 8.7 H (6.3-8.2) g/dL Albumin 5.3 H (3.5-5.0) g/dL Urine Protein 1+ H (Negative) Urine Glucose (UA) 2+ H (Negative) Urine Ketones 1+ H (Negative) Urine Blood Moderate H (Negative) Urine Mucus Rare H (None) /hpf
[2023-09-14] MEDS: FAMOTIDINE 20 MG TAB PO SCH (16:15)
[2023-09-14] MEDS: ENOXAPARIN 30 MG/0.3 ML SYRINGE SQ SCH (16:15)
[2023-09-14] MEDS: SODIUM CHLORIDE 0.45% 1,000 ML IV SCH (16:55)
[2023-09-14] MEDS ORDERED: DEXTROSE 50% SYRINGE 50 ML IVP PRN ×2 (17:31)
[2023-09-14 17:42] LABS: Glucose,Whole Blood 156 mg/dL (70-110)
[2023-09-14] MEDS: cloNIDine HCL 0.1 MG TAB PO STA (17:59)
[2023-09-14] MEDS: INSULIN ASPART (NovoLOG) 100 UNIT/ML VIAL SQ SCH (17:59)
[2023-09-14] MEDS: ONDANSETRON 4 MG/2 ML VIAL IVP PRN (20:51)
[2023-09-14] MEDS: LOSARTAN 50 MG TAB PO SCH (20:51)
[2023-09-14] MEDS: ATORVASTATIN 40 MG TAB PO SCH (20:51)
[2023-09-15 06:07] LABS: Glucose,Whole Blood 100 mg/dL (70-110)
[2023-09-15] MEDS: Semaglutide [Rybelsus] 3 MG Tablet PO SCH (06:25)
[2023-09-15] MEDS: CYANOCOBALAMIN 500 MCG TAB PO SCH (07:34)
[2023-09-15] MEDS: ASPIRIN 81 MG PO SCH (07:34)
[2023-09-15] MEDS: METOPROLOL SUCCINATE (ER) 50 MG TAB.ER.24H PO SCH (07:34)
[2023-09-15] MEDS: INSULIN DETEMIR (LEVEMIR) 100 UNIT/ML SYR SQ SCH (07:34)
[2023-09-15 11:16] LABS: Glucose,Whole Blood 141 mg/dL (70-110)
[2023-09-15 11:34] LABS: African American GFR (CKD) 27 (>60 ml/min/1.73 sqM); Anion Gap 8 mmol/L; Blood Urea Nitrogen 61 mg/dL (9-20); Calcium 9.3 mg/dL (8.4-10.2); Carbon Dioxide 27 mmol/L (22-30); Chloride 102 mmol/L (98-107); Glucose 143 mg/dL (74-99); Non-African American GFR(CKD) 23 (>60 ml/min/1.73 sqM); Potassium 4.2 mmol/L (3.5-5.1); Sodium 137 mmol/L (137-145)
[2023-09-15] MEDS: CALCIUM CARBONATE 500 MG CHEWABLE PO PRN (11:51)
[2023-09-15 16:46] LABS: Glucose,Whole Blood 103 mg/dL (70-110)
[2023-09-15 19:55] LABS: Glucose,Whole Blood 98 mg/dL (70-110)
--- NOTE | 2023-09-15 21:24 | P.NPCON ---
History of Present Illness - Reason for Consult acute renal failure - History of Present Illness Patient is a 63-year-old male who was admitted to the hospital with complaints of increased weakness associated with severe nausea and vomiting for about 2 days prior to admission. Patient denies any history of fevers chills. No history of cough or chest pains. No previous history of kidney diseases. Serum creatinine was 3.1 on admission and decreased to 2.8. Previous creatinine 1.0 in 2019 Calcium was elevated at 11.4 and has decreased to 9.3. Patient is maintained on IV fluids. He admits to history of use of Motrin on a daily basis. Maintained on losartan prior to admission. No hypotension noted. Review of Systems As per HPI Past Medical History Past Medical History: Diabetes Mellitus, Hyperlipidemia, Hypertension History of Any Multi-Drug Resistant Organisms: None Reported Past Surgical History: Orthopedic Surgery Additional Past Surgical History / Comment(s): bone graft left wrist, bone spur left ankle Past Anesthesia/Blood Transfusion Reactions: No Reported Reaction Past Psychological History: No Psychological Hx Reported Smoking Status: Never smoker Past Alcohol Use History: Occasional Past Drug Use History: None Reported Medications and Allergies Home Medications Medication Instructions Recorded Confirmed Type Cyanocobalamin (Vitamin B-12) 1,000 mcg PO DAILY 01/29/18 09/14/23 History [Vitamin B-12] Aspirin EC [Ecotrin Low Dose] 81 mg PO DAILY 09/14/23 09/14/23 History Glucagon [Gvoke Pfs 1-Pack Syringe] 1 mg SQ ONCE PRN 09/14/23 09/14/23 History Insulin Aspart [NovoLOG Flexpen] See Protocol SQ AC-TID 09/14/23 09/14/23 History Insulin Glargine,Hum.rec.anlog 34 units SQ DAILY 09/14/23 09/14/23 History [Toujeo Max Solostar] Losartan [Cozaar] 50 mg PO HS 09/14/23 09/14/23 History Metoprolol Succinate (ER) [Toprol 50 mg PO DAILY 09/14/23 09/14/23 History Xl] Rosuvastatin [Crestor] 20 mg PO HS 09/14/23 09/14/23 History Semaglutide [Rybelsus] 3 mg PO AC-BRKFST 09/14/23 09/14/23 History Testosterone Cypionate 200 mg IM Q14D 09/14/23 09/14/23 History [Depo-Testosterone] Allergies Allergy/AdvReac Type Severity Reaction Status Date / Time No Known Allergies Allergy Verified 09/14/23 11:09 Physical Exam Vitals: Vital Signs Temp Pulse Resp BP Pulse Ox 09/15/23 20:00 97.4 F L 88 18 161/93 97 09/15/23 13:55 97.9 F 94 18 165/89 97 09/15/23 07:47 97.8 F 86 17 145/81 96 09/15/23 02:00 98.6 F 106 H 18 146/86 97 Intake and Output 09/15/23 09/15/23 09/15/23 06:59 14:59 22:59 Intake Total 3200 540 Balance 3200 540 Intake: Intake, IV Titration 1800 Amount Sodium Chloride 0.45% 1, 1800 000 ml @ 150 mls/hr IV . Q6H40M AMANDA Rx#:[id number] Oral 1400 540 Other: # Voids 1 1 Patient is awake, comfortable, no acute distress Alert oriented x 3 Examination of the heart S1 and S2 Examination of the lungs bilateral breath sounds are heard Abdomen is soft nontender Examination of lower extremities shows no significant edema SCORE CALLER exam grossly intact Results - Lab Results Most recent lab results Calcium 9.3 mg/dL (8.4-10.2) 09/15/23 10:35 09/14/23 12:46 09/15/23 10:35 Assessment and Plan Assessment: 1. Acute kidney injury secondary to NSAIDs and volume depletion as well as hypercalcemia currently nonoliguric and improving with IV hydration. 2. Hypercalcemia currently improved with IV hydration. Obtain basic workup as calcium is noted to be elevated in 2019, 2018 and 2017 as well. 3. Volume depletion currently improved 4. Type 2 diabetes maintained on metformin currently on hold 5. Chronic kidney disease with fairly preserved GFR. Proteinuria noted on UA in 2018 and 2014. Etiology is likely diabetic kidney disease Plan: Continue with IV fluids Check PTH level, vitamin D D level and intact PTH. Patient is advised to avoid use of NSAIDs and maintain adequate hydration. Continue to hold angiotensin receptor blockers for now. Repeat labs in a.m. Thank you for the consultation. We will continue to follow the patient with you during his hospitalization.
[2023-09-16 06:10] LABS: Glucose,Whole Blood 74 mg/dL (70-110)
[2023-09-16] MEDS: ENOXAPARIN 40 MG/0.4 ML SYRINGE SQ SCH (09:02)
[2023-09-16 09:23] LABS: African American GFR (CKD) 28 (>60 ml/min/1.73 sqM); Anion Gap 10 mmol/L; Blood Urea Nitrogen 48 mg/dL (9-20); Calcium 9.7 mg/dL (8.4-10.2); Carbon Dioxide 23 mmol/L (22-30); Chloride 103 mmol/L (98-107); Glucose 121 mg/dL (74-99); Non-African American GFR(CKD) 24 (>60 ml/min/1.73 sqM); Potassium 3.9 mmol/L (3.5-5.1); Sodium 136 mmol/L (137-145)
[2023-09-16 11:37] LABS: Glucose,Whole Blood 82 mg/dL (70-110)
--- NOTE | 2023-09-16 12:25 | P.PN ---
Subjective Patient seen for follow-up for Raissa. Currently maintained on IV fluids. Patient is tolerating oral intake better. Good urine output. Serum creatinine decreased to 2.7 from 3.1 on admission. Objective - Vital Signs Vital signs: Vital Signs Temp 98.2 F 09/16/23 07:50 Pulse 101 H 09/16/23 07:50 Resp 19 09/16/23 07:50 BP 160/91 09/16/23 07:50 Pulse Ox 97 09/16/23 07:50 FiO2 Intake & Output 09/15/23 09/16/23 09/16/23 18:59 06:59 18:59 Intake Total 540 3240 240 Balance 540 3240 240 Intake: Intake, IV Titration 1800 Amount Sodium Chloride 0.45% 1, 1800 000 ml @ 150 mls/hr IV . Q6H40M [facility] Rx#:[id number] Oral 540 1440 240 Other: # Voids 1 3 - Exam Patient is awake, comfortable, no acute distress Alert oriented x 3 Examination of the heart S1 and S2 Examination of the lungs bilateral breath sounds are heard Abdomen is soft nontender Examination of lower extremities shows no significant edema TELECOM SPECIALIST exam grossly intact - Labs CBC & Chem 7: 09/14/23 12:46 09/16/23 07:17 Labs: Abnormal Lab Results - Last 24 Hours (Table) 09/15/23 09/16/23 Range/Units 10:35 07:17 Sodium 136 L (137-145) mmol/L BUN 48 H (9-20) mg/dL Creatinine 2.72 H (0.66-1.25) mg/dL Glucose 121 H (74-99) mg/dL Hemoglobin A1c 6.3 H (<=6.0) % Assessment and Plan Assessment: 1. Acute kidney injury secondary to NSAIDs and volume depletion as well as hypercalcemia currently nonoliguric and improving with IV hydration. 2. Hypercalcemia currently improved with IV hydration. Obtain basic workup as calcium is noted to be elevated in 2019, 2018 and 2017 as well. PTH is OT 8.1 and 25 hydroxyvitamin D is 41.5. Immunofixation is pending. Yuri level will be ordered 3. Volume depletion currently improved 4. Type 2 diabetes maintained on metformin currently on hold 5. Chronic kidney disease with fairly preserved GFR. Proteinuria noted on UA in 2017 and 2014. Etiology is likely diabetic kidney disease Plan: Continue with IV fluids Check Yuri level and check chest x-ray Patient is advised to avoid use of NSAIDs and maintain adequate hydration. Continue to hold angiotensin receptor blockers for now. Repeat labs in a.m.
--- NOTE | 2023-09-16 12:51 | XR ---
EXAMINATION TYPE: XR chest 2V DATE OF EXAM: 09/16/2023 COMPARISON: 01/29/2018 HISTORY: Shortness of breath TECHNIQUE: Frontal and lateral views of the chest are obtained. FINDINGS: Scattered senescent parenchymal changes noted. Hyperinflation compatible with COPD. No evidence for infiltrate. No evidence for atelectasis. Heart size is stable. Mediastinal structures are stable and grossly unremarkable. No evidence for hilar prominence. Degenerative changes dorsal spine. IMPRESSION: 1. No evidence for acute pulmonary disease.
[2023-09-16 15:39] VITALS: RESP 18
--- NOTE | 2023-09-16 16:37 | P.PN ---
Progress Note - Text Progress Note Date: 09/16/23 Chief Complaint: Vomiting This is a pleasant 63-year-old patient, follows with Dr. Silva. Chronic stable medical conditions include diabetes type 2, essential hypertension, L4-L5 disc disease, hyperlipidemia, inappropriate tachycardia. 2 days ago on Thursday morning after having his morning coffee patient started vomiting. Vomiting persisted pretty much all of Thursday and Thursday. Was able to keep anything down. [place] extremely weak and tired and decided to go to his family doctor this morning was sent to the ER. Has some associated heartburn. Denied any abdominal pain. No change in bowel pattern. Slight chills. But no fever. Patient is accompanied by his in the ER. Creatinine has bumped up. September 15: Feeling better. Tolerating diet. Getting IV fluids. Making urine. Creatinine down to 2.72. Per nephrology patient possibly is underlying chronic kidney disease. Discussed with patient and . No further nausea vomiting. Active Medications Acetaminophen (Acetaminophen Tab 325 Mg Tab) 650 mg PO Q6HR PRN PRN Reason: Mild Pain or Fever > 100.5 Alprazolam (Alprazolam 0.25 Mg Tab) 0.25 mg PO Q6HR PRN PRN Reason: Anxiety Amlodipine Besylate (Amlodipine 5 Mg Tab) 5 mg PO DAILY [facility] Aspirin (Aspirin 81 Mg) 81 mg PO DAILY [facility] Last Admin: 09/16/23 08:53 Dose: 81 mg Atorvastatin Calcium (Atorvastatin 40 Mg Tab) 40 mg PO HS [facility] Last Admin: 09/15/23 20:10 Dose: 40 mg Cyanocobalamin (Cyanocobalamin 500 Mcg Tab) 1,000 mcg PO DAILY [facility] Last Admin: 09/16/23 08:53 Dose: 1,000 mcg Dextrose/Water (Dextrose 50% Syringe 50 Ml) 25 ml IVP PER PROTOCOL PRN; Protocol PRN Reason: Hypoglycemia Dextrose/Water (Dextrose 50% Syringe 50 Ml) 50 ml IVP PER PROTOCOL PRN; Protocol PRN Reason: Hypoglycemia Enoxaparin Sodium (Enoxaparin 40 Mg/0.4 Ml Syringe) 40 mg SQ DAILY [facility] Last Admin: 09/16/23 09:02 Dose: Not Given Famotidine (Famotidine 20 Mg Tab) 20 mg PO DAILY [facility] Last Admin: 09/16/23 08:53 Dose: 20 mg Sodium Chloride (Saline 0.45%) 1,000 mls @ 150 mls/hr IV .Q6H40M [facility] Last Admin: 09/16/23 12:47 Dose: 150 mls/hr Insulin Aspart (Insulin Aspart (Novolog) 100 Unit/Ml Vial) 0 unit SQ AC-TID [facility]; Protocol Last Admin: 09/16/23 12:20 Dose: Not Given Insulin Detemir (Insulin Detemir (Levemir) 100 Unit/Ml Syr) 34 unit SQ DAILY@0700 [facility] Last Admin: 09/16/23 08:53 Dose: 34 unit Lactulose (Lactulose 20 Gm/30 Ml Cup) 20 gm PO DAILY PRN PRN Reason: Constipation Melatonin (Melatonin 3 Mg Tablet) 3 mg PO HS PRN PRN Reason: Insomnia Metoprolol Succinate (Metoprolol Succinate (Er) 50 Mg Tab.Er.24h) 50 mg PO DAILY [facility] Last Admin: 09/16/23 08:53 Dose: 50 mg Naloxone HCl (Naloxone 0.4 Mg/Ml 1 Ml Vial) 0.2 mg IV Q2M PRN PRN Reason: Opioid Reversal Semaglutide [ Rybelsus] 3 Mg Tablet 3 mg PO AC-BRKFST [facility] Last Admin: 09/16/23 06:26 Dose: Not Given Ondansetron HCl (Ondansetron 4 Mg/2 Ml Vial) 4 mg IVP Q8HR PRN PRN Reason: Nausea And Vomiting Last Admin: 09/15/23 16:47 Dose: 4 mg Social history: No smoking alcohol. . 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 Physical examination: VITAL SIGNS: 98, 89, 18, 1 4394, 96% room air GENERAL:, Sitting up, in bed EYES: Pupils equal. Conjunctiva ruperto l. HEENT: External appearance of nose and ears normal, oral cavity grossly normal. NECK: JVD not raised; masses not palpable. HEART: First and second heart sounds are normal; no edema. LUNGS: Respiratory rate normal; clear to auscultation. ABDOMEN: Soft, nontender, liver spleen not palpable, no masses palpable. PSYCH: Alert and oriented x3; mood and affect ruperto l. INVESTIGATIONS, reviewed in the clinical context: September 15: Sodium 136 potassium 3.9 BUN 48 creatinine 2.72 calcium 9.7 PTH 48.1 September 14, 2023: White count 23.2 hemoglobin 7.9 platelets 349 sodium 141 potassium 4.5 BUN 63 creatinine 3.14 EKG tracing personally reviewed by me-sinus tachycardia with occasional PVCs. Some other nonspecific findings CT scan abdomen pelvis: Chronic changes Assessment and plan: -Likely acute viral/bacterial gastritis. Lead resulting in persistent vomiting. For 2 days. Patient not able to keep anything down.: Improved Pepcid. Tolerating soft diet -Acute kidney injury likely combination of ATN and prerenal. Hold off Glucophage, Half saline at 150 cc an hour. Follow renal function -Suspect chronic kidney disease secondary to diabetic nephropathy, stage III-IV Check labs tomorrow -Diabetes mellitus type 2 Follow Accu-Cheks with sliding scale insulin -Inappropriate tachycardia Atenolol Discussed. Continue IV fluids. Check labs tomorrow. Past Medical History Past Medical History: Diabetes Mellitus, Hyperlipidemia, Hypertension History of Any Multi-Drug Resistant Organisms: None Reported Past Surgical History: Orthopedic Surgery Additional Past Surgical History / Comment(s): bone graft left wrist, bone spur left ankle Past Psychological History: No Psychological Hx Reported Smoking Status: Never smoker Past Alcohol Use History: Occasional Past Drug Use History: None Reported
[2023-09-16 16:44] LABS: Glucose,Whole Blood 86 mg/dL (70-110)
[2023-09-16 19:58] LABS: Glucose,Whole Blood 116 mg/dL (70-110)
[2023-09-17 06:54] LABS: Glucose,Whole Blood 88 mg/dL (70-110)
[2023-09-17 07:53] LABS: African American GFR (CKD) 31 (>60 ml/min/1.73 sqM); Anion Gap 9 mmol/L; Blood Urea Nitrogen 38 mg/dL (9-20); Calcium 9.4 mg/dL (8.4-10.2); Carbon Dioxide 26 mmol/L (22-30); Chloride 104 mmol/L (98-107); Glucose 90 mg/dL (74-99); Non-African American GFR(CKD) 26 (>60 ml/min/1.73 sqM); Sodium 139 mmol/L (137-145)
[2023-09-17] MEDS: amLODIPine 5 MG TAB PO SCH (09:15)
--- NOTE | 2023-09-17 09:28 | CDI ---
Documentation Clarification Form Date: 09/17/2023 09:12:08 AM From: Vani Quinonez RN, CCDS Phone: [phone] Admit Date: 09/14/2023 02:21:00 PM Patient Name: Cortez Perez Visit Number: [id number] Discharge Date: ATTENTION: The Clinical Documentation Specialists (CDI) and [facility] Coding Staff appreciate your assistance in clarifying documentation. Please respond to the clarification below the line at the bottom and electronically sign. The CDI & [facility] Coding staff will review the response and follow-up if needed. Please note: Queries are made part of the Legal Health Record. If you have any questions, please contact the author of this message via ITS. Dr. Sindi Pinto Unspecified CKD is documented in the Nephrology consult and subsequent progress note. Additional clarification regarding the stage of CKD is requested. History/Risk Factors: Diabetes Mellitus, Hyperlipidemia, Hypertension Patients Historical: Previous creatinine 1.0 in 2019 Clinical Indicators: 63-year-old male who was admitted to the hospital with complaints of increased weakness associated with severe nausea and vomiting for about 2 days prior to admission. He admits to history of use of Motrin on a daily basis. 3/4 BUN 63, CR 3.14, GFR 24 3/5 BUN 61, CR 2.80, GFR 27 3/6 BUN 48, CR 272, GFR 28 Treatment: 0.45 Saline@150 ML/HR IV 3/4-/7 .9 NS 1,000 ML IV Bolus 3/4 Monitor Labs per Nephrology orders Please clarify the stage of the CKD, if known: [ ] CKD Stage 1 [x ] CKD Stage 2 [ ] CKD Stage 3 [ ] CKD Stage 3a [ ] CKD Stage 3b [ ] CKD Stage 4 [ ] CKD Stage 5 [ ] ESRD [ ] Other, please specify [ ] Unable to determine Reference: National Kid[employer] Stage 1 eGFR = 90 and kidney damage for =3 months Stage 2 eGFR 60-89 and kidney damage for =3 months Stage 3a eGFR 45-59 and kidney damage for =3 months Stage 3b eGFR 30-44 and kidney damage for =3 months Stage 4 eGFR 15-29 r and kidney damage for =3 months Stage 5 eGFR <15 and kidney damage for =3 months (Template Last revised: July 2023) MTDD
[2023-09-17 11:44] LABS: Glucose,Whole Blood 109 mg/dL (70-110)
--- NOTE | 2023-09-17 11:52 | P.PN ---
Subjective Patient seen for follow-up for RAJAN Currently maintained on IV fluids. Patient is tolerating oral intake better. Good urine output. Serum creatinine decreased to 2.5 from 3.1 on admission. Objective - Vital Signs Vital signs: Vital Signs Temp 97.8 F 09/17/23 08:00 Pulse 94 09/17/23 08:00 Resp 18 09/16/23 14:00 BP 130/79 09/17/23 08:00 Pulse Ox 94 L 09/17/23 02:00 FiO2 Intake & Output 09/16/23 09/17/23 09/17/23 18:59 06:59 18:59 Intake Total 598 1300 118 Balance 598 1300 118 Intake: Intake, IV Titration 1300 Amount Sodium Chloride 0.45% 1, 1300 000 ml @ 150 mls/hr IV . Q6H40M [facility] Rx#:[id number] Oral 598 118 Other: Voiding Method Toilet Toilet # Voids 2 - Exam Patient is awake, comfortable, no acute distress Alert oriented x 3 Examination of the heart S1 and S2 Examination of the lungs bilateral breath sounds are heard Abdomen is soft nontender Examination of lower extremities shows no significant edema [employer] exam grossly intact - Labs CBC & Chem 7: 09/14/23 12:46 09/17/23 07:07 Labs: Abnormal Lab Results - Last 24 Hours (Table) 09/16/23 09/17/23 Range/Units 19:55 07:07 BUN 38 H (9-20) mg/dL Creatinine 2.52 H (0.66-1.25) mg/dL POC Glucose (mg/dL) 116 H (70-110) mg/dL Assessment and Plan Assessment: 1. Acute kidney injury secondary to NSAIDs and volume depletion as well as hypercalcemia currently nonoliguric and improving with IV hydration. 2. Hypercalcemia currently improved with IV hydration. Obtain basic workup as calcium is noted to be elevated in 2019, 2017 and 2017 as well. PTH is 48.1 and 25 hydroxyvitamin D is 41.5. Immunofixation is pending. Yuri level and 125 hydroxy vitamin D is also pending. Chest x-ray is clear with no suggestion of sarcoidosis. 3. Volume depletion currently improved 4. Type 2 diabetes maintained on metformin currently on hold 5. Chronic kidney disease with fairly preserved GFR. Proteinuria noted on UA in 2017 and 2014. Etiology is likely diabetic kidney disease Plan: Okay for discharge from nephrology standpoin Patient is advised to avoid NSAIDs and maintain adequate hydration. Continue to hold angiotensin receptor blockers for now. F/u iin the office in 1-2 weeks
[2023-09-17 12:53] VITALS: BP 158/89; PULSE 90; TEMP 97.7
--- NOTE | 2023-09-17 19:09 | P.DS ---
Providers Date of admission: 09/14/23 14:21 Expected date of discharge: 09/17/23 Attending physician: Rony Garcia Consults: 09/14/23 14:11 Consult Physician Urgent Consulting Provider: Sindi Pinto Consult Reason/Comments: Acute renal failure Do you want consulting provider notified?: Yes Primary care physician: [facility] Course: Chief Complaint: Vomiting This is a pleasant 63-year-old patient, follows with Dr. Silva. Chronic stable medical conditions include diabetes type 2, essential hypertension, L4-L5 disc disease, hyperlipidemia, inappropriate tachycardia. 2 days ago on Thursday morning after having his morning coffee patient started vomiting. Vomiting persisted pretty much all of Thursday and Thursday. Was able to keep anything down. [place] extremely weak and tired and decided to go to his family doctor this morning was sent to the ER. Has some associated heartburn. Denied any abdominal pain. No change in bowel pattern. Slight chills. But no fever. Patient is accompanied by his in the ER. Creatinine has bumped up. September 15: Feeling better. Tolerating diet. Getting IV fluids. Making urine. Creatinine down to 2.72. Per nephrology patient possibly is underlying chronic kidney disease. Discussed with patient and . No further nausea vomiting. September 16: Further improvement in creatinine. Told patient to keep his oral intake of fluids increased. Patient to follow-up with Dr. Pinto outpatient. Questions answered. For blood pressure Cozaar discontinued and amlodipine started. Will have repeat labs outpatient with nephrology. Discussion and discharge planning more than 35 minutes Social history: No smoking alcohol. . 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 Physical examination: VITAL SIGNS: 97.7, 90, 16, 158/89, 98% room air GENERAL:, Comfortable EYES: Pupils equal. Conjunctiva ruperto l. HEENT: External appearance of nose and ears normal, oral cavity grossly normal. NECK: JVD not raised; masses not palpable. HEART: First and second heart sounds are normal; no edema. LUNGS: Respiratory rate normal; clear to auscultation. ABDOMEN: Soft, nontender, liver spleen not palpable, no masses palpable. PSYCH: Alert and oriented x3; mood and affect ruperto l. INVESTIGATIONS, reviewed in the clinical context: September 16: BUN 38 creatinine 2.52 September 15: Sodium 136 potassium 3.9 BUN 48 creatinine 2.72 calcium 9.7 PTH 48.1 September 14, 2023: White count 23.2 hemoglobin 7.9 platelets 349 sodium 141 potassium 4.5 BUN 63 creatinine 3.14 EKG tracing personally reviewed by me-sinus tachycardia with occasional PVCs. Some other nonspecific findings CT scan abdomen pelvis: Chronic changes Assessment and plan: -Likely acute viral/bacterial gastritis. Resulting in persistent vomiting. For 2 days. Patient not able to keep anything down.: Resolved Pepcid. Tolerating soft diet -Acute kidney injury likely combination of ATN and prerenal. Hold off Glucophage, Half saline at 150 cc an hour. Follow renal function -Suspect chronic kidney disease secondary to diabetic nephropathy, stage III-IV Follow-up with Dr. Pinto outpatient -Diabetes mellitus type 2 Follow Accu-Cheks with sliding scale insulin. Continue insulin. Semaglutide to be held till follow-up with Dr. 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- discussed with patient -Inappropriate tachycardia Atenolol Disposition: Home Past Medical History Past Medical History: Diabetes Mellitus, Hyperlipidemia, Hypertension History of Any Multi-Drug Resistant Organisms: None Reported Past Surgical History: Orthopedic Surgery Additional Past Surgical History / Comment(s): bone graft left wrist, bone spur left ankle Past Psychological History: No Psychological Hx Reported Smoking Status: Never smoker Past Alcohol Use History: Occasional Past Drug Use History: None Reported Plan - Discharge Summary Discharge Rx Participant: No New Discharge Prescriptions: New Famotidine [Pepcid] 20 mg PO DAILY #30 tab amLODIPine [Norvasc] 5 mg PO HS #30 tab Continue Cyanocobalamin (Vitamin B-12) [Vitamin B-12] 1,000 mcg PO DAILY Testosterone Cypionate [Depo-Testosterone] 200 mg IM Q14D Aspirin EC [Ecotrin Low Dose] 81 mg PO DAILY Metoprolol Succinate (ER) [Toprol XL] 50 mg PO DAILY Insulin Glargine,Hum.rec.anlog [Toujeo Max Solostar] 34 units SQ DAILY Insulin Aspart [NovoLOG Flexpen] See Protocol SQ AC-TID Semaglutide [Rybelsus] 3 mg PO AC-BRKFST Rosuvastatin [Crestor] 20 mg PO HS Glucagon [Gvoke Pfs 1-Pack Syringe] 1 mg SQ ONCE PRN PRN Reason: Hypoglycemia Discontinued Losartan [Cozaar] 50 mg PO HS Discharge Medication List Cyanocobalamin (Vitamin B-12) [Vitamin B-12] 1,000 mcg PO DAILY 01/29/18 [History] Aspirin EC [Ecotrin Low Dose] 81 mg PO DAILY 09/14/23 [History] Glucagon [Gvoke Pfs 1-Pack Syringe] 1 mg SQ ONCE PRN 09/14/23 [History] Insulin Aspart [NovoLOG Flexpen] See Protocol SQ AC-TID 09/14/23 [History] Insulin Glargine,Hum.rec.anlog [Toujeo Max Solostar] 34 units SQ DAILY 09/14/23 [History] Metoprolol Succinate (ER) [Toprol XL] 50 mg PO DAILY 09/14/23 [History] Rosuvastatin [Crestor] 20 mg PO HS 09/14/23 [History] Semaglutide [Rybelsus] 3 mg PO AC-BRKFST 09/14/23 [History] Testosterone Cypionate [Depo-Testosterone] 200 mg IM Q14D 09/14/23 [History] Famotidine [Pepcid] 20 mg PO DAILY #30 tab 09/17/23 [Rx] amLODIPine [Norvasc] 5 mg PO HS #30 tab 09/17/23 [Rx] Follow up Appointment(s)/Referral(s): Sindi Pinto MD [STAFF PHYSICIAN] - 2 Weeks Jake Silva DO [Primary Care Provider] - 1-2 days Rose Colindres [STAFF PHYSICIAN] - 6 Weeks Patient Instructions/Handouts: Acute Abdominal Pain (DC) Activity/Diet/Wound Care/Special Instructions: hold rybelsus till f/u with endocrinology Discharge Disposition: HOME SELF-CARE
== END 2023-09-17 13:43 | disposition home or self-care (01) | DRG 391 ==
LOC: EC 10:57 → 4SSUR 14:21 → 1SOBS 17:38
PROVIDERS: ADMIT Hospitalist; ATTEND Hospitalist
DX: K29.00 Acute gastritis without bleeding (principal); N17.0 Acute kidney failure with tubular necrosis; E11.22 Type 2 diabetes mellitus with diabetic chronic kidney disease; I12.9 Hypertensive chronic kidney disease with stage 1 through stage 4 chronic kidney disease, or unspecified chronic kidney disease; Z79.4 Long term (current) use of insulin; N18.2 Chronic kidney disease, stage 2 (mild); Z28.310 Unvaccinated for COVID-19; T39.395A Adverse effect of other nonsteroidal anti-inflammatory drugs [NSAID], initial encounter; E83.52 Hypercalcemia; E86.9 Volume depletion, unspecified; E78.5 Hyperlipidemia, unspecified; F41.9 Anxiety disorder, unspecified; G47.00 Insomnia, unspecified; R00.0 Tachycardia, unspecified; Z79.82 Long term (current) use of aspirin; Z79.84 Long term (current) use of oral hypoglycemic drugs; Z79.890 Hormone replacement therapy; Z79.899 Other long term (current) drug therapy
CPT/HCPCS: 36415; 71046; 74176; 80048; 80053; 81001; 82164; 82306; 82652; 83036; 83605; 83690; 83970; 85025; 86334; 86335; 93005; 96360; 96361; 96372; 99285

== ENCOUNTER → 2023-09-30 | Outpatient (CLI) | payer BC ==
[2023-09-30 11:56] LABS: Basophils # (A) 0.05 X 10*3/uL (0.00-0.10); Basophils % (A) 0.4 %; Eosinophils # (A) 0.23 X 10*3/uL (0.04-0.35); HCT 43.4 % (39.6-50.0); HGB 14.6 g/dL (13.0-17.0); Lymphocytes # (A) 2.36 X 10*3/uL (0.90-5.00); Lymphocytes % (A) 20.1 %; MCH 30.7 pg (27.0-32.0); MCHC 33.6 g/dL (32.0-37.0); MCV 91.2 FL (80.0-97.0); Mean Platelet Volume 10.8 FL (9.5-12.2); Monocytes # (A) 0.77 X 10*3/uL (0.20-1.00); Monocytes % (A) 6.6 %; NRBC Per 100 WBC 0 X 10*3/uL (0.00-0.01); Neutrophils # (A) 8.28 X 10*3/uL (1.80-7.70); Neutrophils % (A) 70.6 %; Platelet Count 421 X 10*3/uL (140-440); RBC 4.76 X 10*6/uL (4.40-5.60); RDW 12.1 % (11.5-14.5); WBC 11.73 X 10*3/uL (4.50-10.00)
[2023-09-30 12:41] LABS: Urine Creatinine 90.4 mg/dL (39.0-259.0)
[2023-09-30 13:21] LABS: ALT 71 U/L (10-49); AST 27 U/L (14-35); Albumin 4.3 g/dL (3.8-4.9); Albumin/Globulin Ratio 1.59 Ratio (1.60-3.17); Alkaline Phosphatase 86 U/L (41-126); Amylase 65 U/L (23-121); BUN/Creat Ratio 10.11 Ratio (12.00-20.00); Blood Urea Nitrogen 19.2 mg/dL (9.0-27.0); Calcium 10.2 mg/dL (8.7-10.3); Carbon Dioxide 25.2 mmol/L (21.6-31.8); Chloride 101 mmol/L (96-109); Chol/HDL Ratio 2.41 Ratio; Globulin 2.7 g/dL (1.6-3.3); Glucose 94 mg/dL (70-110); LDL Cholesterol,Calculated 44.6 mg/dL (0.0-131.0); Lipase 45 U/L (14-60); Potassium 4.4 mmol/L (3.5-5.5); Prostate Specific Antigen 2.84 ng/mL (0.000-4.500); Sodium 139 mmol/L (135-145); Total Bilirubin 0.3 mg/dL (0.3-1.2); VLDL Calculation 8.56 mg/dL (5.00-40.00)
== END | disposition home or self-care (01) ==
LOC: LABWHC1 07:07
PROVIDERS: ATTEND Internal Medicine Endocrinology, Diabetes & Metabolism
DX: E10.65 Type 1 diabetes mellitus with hyperglycemia (principal); E29.1 Testicular hypofunction; K52.9 Noninfective gastroenteritis and colitis, unspecified; N17.9 Acute kidney failure, unspecified; R94.4 Abnormal results of kidney function studies
CPT/HCPCS: 36415; 80053; 80061; 82043; 82150; 82570; 83036; 83690; 84153; 84403; 84443; 85025

== ENCOUNTER 2024-02-20 08:03 | Emergency (ER) | payer OTHER, BC ==
[2024-02-20] MEDS ORDERED: SODIUM CHLORIDE 0.9% 1,000 ML BAG ONE (08:56)
[2024-02-20] MEDS ORDERED: METOCLOPRAMIDE 5 MG/ML 2 ML VIAL ONE (09:02)
== END 2024-02-20 10:41 | disposition home or self-care (01) ==
LOC: EC 08:03
DX: R11.10 Vomiting, unspecified (principal)
CPT/HCPCS: 99283; J2765

== ENCOUNTER → 2024-03-07 | Outpatient (CLI) | payer OTHER ==
[2024-03-07 16:30] LABS: BUN/Creat Ratio 16.53 Ratio (12.00-20.00); Blood Urea Nitrogen 28.1 mg/dL (9.0-27.0); Calcium 10.3 mg/dL (8.7-10.3); Carbon Dioxide 22.9 mmol/L (21.6-31.8); Chloride 104 mmol/L (96-109); Glucose 104 mg/dL (70-110); Potassium 4.7 mmol/L (3.5-5.5); Sodium 138 mmol/L (135-145)
== END | disposition home or self-care (01) ==
LOC: LABWHC1 09:42
PROVIDERS: ATTEND Nurse Practitioner Family
DX: I10 Essential (primary) hypertension (principal)
CPT/HCPCS: 36415; 80048

== ENCOUNTER → 2024-03-16 | Outpatient (CLI) | payer OTHER, BC ==
[2024-03-16 15:43] LABS: BUN/Creat Ratio 14.57 Ratio (12.00-20.00); Blood Urea Nitrogen 20.4 mg/dL (9.0-27.0); Calcium 10.2 mg/dL (8.7-10.3); Carbon Dioxide 24.4 mmol/L (21.6-31.8); Chloride 101 mmol/L (96-109); Glucose 100 mg/dL (70-110); Potassium 4.9 mmol/L (3.5-5.5); Sodium 136 mmol/L (135-145)
== END | disposition home or self-care (01) ==
LOC: LABWHC1 09:17
PROVIDERS: ATTEND Internal Medicine Nephrology
DX: I10 Essential (primary) hypertension (principal)
CPT/HCPCS: 36415; 80048

== ENCOUNTER → 2024-04-25 | Outpatient (CLI) | payer OTHER, BC ==
[2024-04-25 10:09] LABS: Basophils # (A) 0.04 X 10*3/uL (0.00-0.10); Basophils % (A) 0.4 %; Eosinophils # (A) 0.45 X 10*3/uL (0.04-0.35); Eosinophils % (A) 4.1 %; HGB 17.1 g/dL (13.0-17.0); Lymphocytes % (A) 30.2 %; MCH 29.7 pg (27.0-32.0); MCHC 33.5 g/dL (32.0-37.0); MCV 88.5 FL (80.0-97.0); Mean Platelet Volume 10.8 FL (9.5-12.2); Monocytes # (A) 0.94 X 10*3/uL (0.20-1.00); Monocytes % (A) 8.6 %; NRBC Per 100 WBC 0 X 10*3/uL (0.00-0.01); Neutrophils # (A) 6.13 X 10*3/uL (1.80-7.70); Neutrophils % (A) 56.2 %; Platelet Count 276 X 10*3/uL (140-440); RBC 5.76 X 10*6/uL (4.40-5.60); WBC 10.91 X 10*3/uL (4.50-10.00)
[2024-04-25 10:45] LABS: Blood Urea Nitrogen 21.9 mg/dL (9.0-27.0); Calcium 9.9 mg/dL (8.7-10.3); Carbon Dioxide 23.5 mmol/L (21.6-31.8); Chloride 102 mmol/L (96-109); Glucose 131 mg/dL (70-110); Iron 133 UG/DL (65-175); Magnesium 1.9 mg/dL (1.5-2.4); Phosphorus 3.3 mg/dL (2.4-5.1); Potassium 4.7 mmol/L (3.5-5.5); Sodium 135 mmol/L (135-145); Total Iron Binding Capacity 403 UG/DL (228-460); Uric Acid 3.6 mg/dL (3.7-8.7)
[2024-04-25 10:46] LABS: Ferritin 36.2 ng/mL (22.0-322.0)
[2024-04-25 15:33] LABS: Appearance,Urine Clear (Clear); Bilirubin,Urine Negative (Negative); Blood,Urine Negative (Negative); Color,Urine Yellow (Yellow); Ketones,Urine Negative (Negative); Nitrite,Urine Negative (Negative); PH, Urine 5.5; Specific Gravity,Urine 1.013 (1.001-1.030); Urobilinogen,Urine 0.2 E.U./DL
[2024-04-25 21:12] LABS: Urine Creatinine 65.7 mg/dL (39.0-259.0)
== END | disposition home or self-care (01) ==
LOC: LABWHC1 07:16
PROVIDERS: ATTEND Internal Medicine Nephrology
DX: N17.9 Acute kidney failure, unspecified (principal)
CPT/HCPCS: 36415; 80048; 81003; 82043; 82306; 82570; 82728; 83540; 83550; 83735; 83970; 84100; 84550; 85025

== ENCOUNTER → 2025-01-05 | Outpatient (CLI) | payer OTHER ==
[2025-01-05 10:16] LABS: HCT 48.9 % (39.6-50.0); MCH 29.6 pg (27.0-32.0); MCHC 32.7 g/dL (32.0-37.0); MCV 90.6 FL (80.0-97.0); Mean Platelet Volume 10.1 FL (9.5-12.2); NRBC Per 100 WBC 0.03 X 10*3/uL (0.00-0.01); Platelet Count 303 X 10*3/uL (140-440); RDW 13.8 % (11.5-14.5)
[2025-01-05 10:39] LABS: ALT 81 U/L (10-49); AST 33 U/L (14-35); Albumin 4.3 g/dL (3.8-4.9); Albumin/Globulin Ratio 1.54 Ratio (1.60-3.17); Alkaline Phosphatase 94 U/L (41-126); BUN/Creat Ratio 24.31 Ratio (12.00-20.00); Blood Urea Nitrogen 31.6 mg/dL (9.0-27.0); Carbon Dioxide 20.3 mmol/L (21.6-31.8); Chloride 104 mmol/L (96-109); Globulin 2.8 g/dL (1.6-3.3); Glucose 125 mg/dL (70-110); Potassium 4.4 mmol/L (3.5-5.5); Prostate Specific Antigen 2.32 ng/mL (0.000-4.500); Sodium 136 mmol/L (135-145); Total Bilirubin 0.3 mg/dL (0.3-1.2); Total Protein 7.1 g/dL (6.2-8.2)
== END | disposition home or self-care (01) ==
LOC: LABWHC1 07:27
PROVIDERS: ATTEND Internal Medicine Endocrinology, Diabetes & Metabolism
DX: E10.65 Type 1 diabetes mellitus with hyperglycemia (principal); E29.1 Testicular hypofunction
CPT/HCPCS: 36415; 80053; 83036; 84153; 84403; 85027